=== PATIENT | female | born 1970 | race Caucasian/White ===

== ENCOUNTER 2022-04-16 00:14 | Day surgery (SDC) | payer OTHER, SELFPAY ==
[2022-04-01 13:10] VITALS: BMI 21.2
[2022-04-16 09:26] VITALS: BP 113/88; PULSE 93; RESP 18; TEMP 36.8; O2SAT 100
--- NOTE | 2022-04-16 09:30 | WPDANESEPPF ---
Anes - Initial Pre Proc Eval Procedure: Operation Date: 04/16/22 10:30 Proposed Procedures p Colonoscopy - Myron Hart MD Date/Time: 04/16/22 09:30 Surgeon: Myron Hart MD Pre Op Diagnosis: blood in stool Patient Data Age: 51 Gender: F Height: 1.73 m Weight: 62.8 kg Last Vital Signs Temp 98.2 F 04/16/22 09:26 Pulse 93 04/16/22 09:26 Resp 18 04/16/22 09:26 BP 113/88 04/16/22 09:26 Pulse Ox 100 04/16/22 09:26 O2 Del Method Room Air 04/16/22 09:26 Allergies Allergy/AdvReac Type Severity Reaction Status Date / Time meperidine Allergy Unknown RASH/DIZZIN Verified 04/16/22 09:24 ESS Home Medications Medication Instructions Recorded Confirmed Type phentermine 37.5 mg tablet 37.5 mg PO DAILY 04/01/22 04/16/22 History Patient hx anesthesia problems: none Family hx anesthesia problems: none Results Review: All pre-operative results and documents have been reviewed as part of the pre-operative evaluation. [facility] Social History Social History Smoking status: Never smoker Alcohol intake: current Alcohol use details: socially Substance use type: does not use Living arrangements: with family Spiritual care concerns: No Anes - Eval Final PreProcedure Day of Procedure 04/16/22 09:30 Patient weight: normal Heart: regular rate and rhythm Lungs: clear to auscultation Airway: Mallampati scale class II Neurological: alert and oriented Last oral intake: >/= 8 hours ASA classification: I Emergent: no Anesthetic plan: proceed Anesthesia type and monitoring: general GIVS and standard monitoring Results Review: All pre-operative results and documents have been reviewed as part of the pre-operative evaluation. Informed Consent: The patient's anesthetic plan and its attendant risks and benefits were discussed with the patient/family/POA. Questions were solicited and answers provided to the satisfaction of the patient/family/POA.
[2022-04-16] MEDS: LACTATED RINGERS 1,000 ML 150 ML IV CONT (09:39)
--- NOTE | 2022-04-16 10:08 | P.HP_ITS ---
H&P: HPI History of Present Illness Date/Time: 04/16/22 10:08 Chief Complaint: Rectal bleeding. Narrative: This is a 51-year-old white female patient presents for screening colonoscopy. Patient reports occasional bright red blood per rectum typically with wiping. This occurred 3 times over the last several years. She had a colonoscopy in 2018 that revealed internal hemorrhoids. Additionally family history is significant that her mother had colon cancer brother had colon polyps. Patient presents today for screening colonoscopy. Review of Systems Review of Systems: Review of systems noncontributory. [facility] Social History Social History Smoking status: Never smoker Alcohol intake: current Alcohol use details: socially Substance use type: does not use Living arrangements: with family Spiritual care concerns: No Meds Home Medications and Allergies Home Medications Medication Instructions Recorded Confirmed Type phentermine 37.5 mg tablet 37.5 mg PO DAILY 04/01/22 04/16/22 History Allergies Allergy/AdvReac Type Severity Reaction Status Date / Time meperidine Allergy Unknown RASH/DIZZIN Verified 04/16/22 09:24 ESS Vital Signs Vital Signs - 24 hr 04/16/22 09:26 Temperature 98.2 F Pulse Rate 93 Respiratory Rate 18 Blood Pressure 113/88 Pulse Oximetry 100 Oxygen Delivery Room Air Exam Narrative: Physical exam reveals patient to be alert. Vital signs stable. HEENT exam is unremarkable. Patient is anicteric. Lungs are clear to auscultation and percussion. Heart is without murmur or extra sounds. Abdomen bowel sounds are present soft nontender with no organomegaly. Digital external rectal exam is normal. Assessment and Plan Assessment and plan (1) Rectal bleeding: Code(s): K62.5 - Hemorrhage of anus and rectum Status: Acute Assessment and Plan: Patient with intermittent bright red blood per rectum consistent with her known hemorrhoids. Plan is for high-fiber diet. If bleeding persists consider referral for hemorrhoid surgery. (2) Family history of colon cancer in mother: Code(s): Z80.0 - Family history of malignant neoplasm of digestive organs Status: Acute Assessment and Plan: Patient's mother had colon cancer. Brother had colon polyps. Plan is for surveillance colonoscopy at 5 year intervals. Further recommendations will be given after endoscopy.
[2022-04-16 10:37] VITALS: BP 94/57; PULSE 80; RESP 24; O2SAT 100
[2022-04-16 10:47] VITALS: BP 91/65; PULSE 84; RESP 20; O2SAT 100
[2022-04-16 10:57] VITALS: BP 99/68; PULSE 77; RESP 20; O2SAT 100
== END 2022-04-16 11:07 | disposition home or self-care (01) ==
PROVIDERS: PCP Internal Medicine; Visit Provider Internal Medicine Gastroenterology
PROC: 0DJD8ZZ Inspection of Lower Intestinal Tract, Via Natural or Artificial Opening Endoscopic (ICD-10-PCS; CPT 45378; principal; 2022-04-16 10:30)
DX: Z12.11 Encounter for screening for malignant neoplasm of colon (principal); K62.5 Hemorrhage of anus and rectum; Z80.0 Family history of malignant neoplasm of digestive organs; R19.5 Other fecal abnormalities
CPT/HCPCS: 45378; J2704; J7120

== ENCOUNTER 2023-08-29 15:07 | Emergency (ER) | payer OTHER, SELFPAY ==
[2023-08-29 15:46] VITALS: BP 123/79; PULSE 107; RESP 18; TEMP 36.6; O2SAT 98
--- NOTE | 2023-08-29 16:21 | ED.URI ---
HPI - URI/Sore Throat General Chief Complaint: Upper Respiratory Infection Stated Complaint: sorethroat,cough Time Seen by Provider: 08/29/23 15:55 Source: patient Mode of arrival: ambulatory Limitations: no limitations History of Present Illness HPI Narrative: Lori is a 52-year-old female patient presenting to the clinic today with complaints of sore throat or cough for the past 2-3 days. She reports no known fever or chills. Feels as though when she coughs she is having bronchospasms. No history of asthma or COPD. Had COVID before . MD elicited complaint: cough, sore throat and nasal congestion Related Data Allergies Allergy/AdvReac Type Severity Reaction Status Date / Time meperidine Allergy Unknown RASH/DIZZIN Verified 08/29/23 16:10 ESS Review of Systems Review of Systems: Pertinent positives per HPI. Patient denies any fever, chills, rash, headache, visual changes, dizziness, shortness of breath, chest pain, palpitations, nausea, vomiting, diarrhea, constipation, abdominal pain, or any urinary issues. PMFSH Past Medical History Medical History Anxiety Weight loss Surgical History Surgical History History of hysterectomy 2010 History of tonsillectomy History of wisdom tooth extraction Social History Social History Smoking status: Never smoker Alcohol intake: current Alcohol use details: socially Substance use: never Substance use type: does not use Lack of Transportation: No Lack of Food: Never True Current Housing: I Have Housing Concerned About Future Housing: No Difficulty Paying Gas/Electric Bills: No Difficulty Paying for Meds: No Currently Unemployed: No Difficulty w/ Childcare or Family Care: No Living arrangements: with family Occupation/Education: occupation Gender identity (if verbalized by the patient): Female Sexual Orientation (if Verbalized by the Patient): Straight or Heterosexual Spiritual care concerns: No Comments At the time of my signature, I reviewed and agree with the nursing past medical, surgical, social, and family history. There is no relevant family history pertinent to the patient complaint. Exam Narrative: General: Well-developed, well nourished, in no apparent distress Head: Normocephalic, atraumatic Eyes: Pupils equally round and reactive to light bilaterally, EOM intact, sclera and conjunctive clear, no discharge, lids normal Ears: TMs intact and congested, ear canals clear, no drainage, grossly hearing normal. Nose: Nares patent, and clear discharge, no inflammation, no sinus tenderness. Mouth: Oral pharynx without lesions or masses, good dentition, MMM. Postnasal drip Neck: Supple, trachea midline, no enlargement of anterior or posterior cervical nodes, no thyroid masses or goiter palpable. Cardio: Regular rate and rhythm, s1 and s2 normal, no murmur appreciated. Resp: Clear to auscultation bilaterally, no rhonchi, rales, wheezing or rubs Course Course Emergency Course: Portions of this record may have been created with voice recognition software. Level of Care: Express Care Visit Vital Signs Vital signs: Vital Signs Temperature 36.6 C 08/29/23 15:46 Pulse Rate 107 H 08/29/23 15:46 Respiratory Rate 18 08/29/23 15:46 Blood Pressure 123/79 08/29/23 15:46 Pulse Oximetry 98 08/29/23 15:46 Oxygen Delivery Room Air 08/29/23 15:46 Temperature 36.6 C 08/29/23 15:46 Pulse Rate 107 H 08/29/23 15:46 Respiratory Rate 18 08/29/23 15:46 Blood Pressure 123/79 08/29/23 15:46 Pulse Oximetry 98 08/29/23 15:46 Oxygen Delivery Room Air 08/29/23 15:46 Vital signs reviewed MDM - URI/Sore Throat MDM Narrative Medical decision making narrative: At the time of visit patient is rest
== END 2023-08-29 16:28 | disposition home or self-care (01) ==
PROVIDERS: Emergency Provider Nurse Practitioner Family; PCP Physician Assistant Medical
DX: J06.9 Acute upper respiratory infection, unspecified (principal); R09.82 Postnasal drip; R05.1 Acute cough
CPT/HCPCS: 87081; 87880; 99213; G0463

== ENCOUNTER 2023-10-19 12:16 | Emergency (ER) | payer OTHER, SELFPAY ==
[2023-10-19 13:18] VITALS: BP 125/89; PULSE 85; RESP 18; TEMP 36.7; O2SAT 99
--- NOTE | 2023-10-19 13:34 | ED.SKABFB ---
HPI - Skin/Abscess/Foreign Bdy General Chief complaint: Skin/Abscess/Foreign Body Stated complaint: shingles Time Seen by Provider: 10/19/23 13:34 Source: patient Mode of arrival: ambulatory Limitations: no limitations History of Present Illness HPI narrative: 53 yo F presents with c/o painful, itchy rash to R mid back under bra strap for approx. 4 days. Taking tylenol and ibuprofen to treat pain. Pt states she had pain first and thought is was a muscle so went and got massage. Next day noticed rash. Concerned for shingles. all systems reviewed and negative except as noted above. Related Data Allergies Allergy/AdvReac Type Severity Reaction Status Date / Time meperidine Allergy Unknown RASH/DIZZIN Verified 10/19/23 13:21 ESS Review of Systems Review of Systems: CONSTITUTIONAL: Denies fever, chills, or sweats. EYES: Denies visual changes, redness, or discharge. ENT: Denies rhinorrhea, congestion, sore throat, or otalgia. CARDIOVASCULAR: Denies chest pain, palpitations, or edema. RESPIRATORY: Denies cough or dyspnea. GASTROINTESTINAL: Denies abdominal pain, nausea, vomiting, or diarrhea. GENITOURINARY: Denies dysuria or hematuria. SKIN: Reports painful itchy rash to right mid back. MUSCULOSKELETAL: Denies back pain, joint pain, or myalgia. NEUROLOGIC: Denies headache, numbness, or weakness. PSYCHIATRIC: Denies anxiety or depression. All other systems reviewed are negative, except as documented in HPI. [facility] Past Medical History Medical History Anxiety Weight loss Surgical History Surgical History History of hysterectomy 2010 History of tonsillectomy History of wisdom tooth extraction Social History Social History Smoking status: Never smoker Alcohol intake: current Alcohol use details: socially Substance use: never Substance use type: does not use Lack of Transportation: No Lack of Food: Never True Current Housing: I Have Housing Concerned About Future Housing: No Difficulty Paying Gas/Electric Bills: No Difficulty Paying for Meds: No Currently Unemployed: No Difficulty w/ Childcare or Family Care: No Living arrangements: with family Occupation/Education: occupation Gender identity (if verbalized by the patient): Female Sexual Orientation (if Verbalized by the Patient): Straight or Heterosexual Spiritual care concerns: No Comments At time of signature, agree with nursing past medical, surgical, social and family history. There is no relevant family history pertinent to the presenting complaint. Exam Narrative: GENERAL: This is a well-nourished, well-developed patient, in no apparent distress. HEAD: normocephalic, atraumatic. EYES: PERRL. Sclera clear/white. Vision is grossly intact. EARS: External ears normal NOSE: External nose normal NECK: Neck supple, non-tender without lymphadenopathy, masses or thyromegaly. CARDIOVASCULAR: Regular rate and rhythm without murmurs, gallops, or rubs. RESPIRATORY: Clear to auscultation. Breath sounds equal bilaterally. No wheezes, rales, or rhonchi. SKIN: warm, Dry, intact, good texture and turgor. cluster of erythematous vesicles to R side of back under bra strap. tender on palpation. NEURO: awake, alert, and oriented to person, place and time. There were no obvious focal neurologic abnormalities. EXTREMITIES: No joint tenderness, effusion, or edema noted. Course Course Level of Care: Express Care Visit Vital Signs Vital signs: Vital Signs Temperature 36.7 C 10/19/23 13:18 Pulse Rate 85 10/19/23 13:18 Respiratory Rate 18 10/19/23 13:18 Blood Pressure 125/89 10/19/23 13:18 Pulse Oximetry 99 10/19/23 13:18 Oxygen Delivery Room Air 10/19/23 13:18 Temperature 36.7 C 10/19/23 13:18 Pulse Rate 85 10/19/23 1
== END 2023-10-19 13:53 | disposition home or self-care (01) ==
PROVIDERS: Emergency Provider Nurse Practitioner Family
DX: B02.9 Zoster without complications (principal)
CPT/HCPCS: 99213; G0463

== ENCOUNTER 2024-05-13 12:54 | Emergency (ER) | payer OTHER, SELFPAY ==
[2024-05-13 13:00] VITALS: BP 109/77; PULSE 85; RESP 16; TEMP 36.6; O2SAT 99
--- NOTE | 2024-05-13 13:03 | ED.FEMALEGU ---
HPI - Female Genitourinary General Chief complaint: Urogenital-Female Stated complaint: UTI Source: patient and RN notes reviewed Mode of arrival: ambulatory Limitations: no limitations History of Present Illness HPI Narrative: 53 y/o female presented for c/o bladder pressure and urinary frequency for 3 days. Reports LLQ abdominal pain last night, which has resolved. The pain was severe, causing her to feel nauseated and sweaty. It resolved before she went to the ER. Denies hematuria, nausea, vomiting, flank pain, constipation, diarrhea, fevers or chills. LBM 2 days ago, which she states is normal for her Related Data Home Medications Medication Instructions Recorded Confirmed alprazolam 0.25 mg tablet 0.25 mg PO BID anxiety 05/13/24 05/13/24 Allergies Allergy/AdvReac Type Severity Reaction Status Date / Time meperidine Allergy Unknown RASH/DIZZIN Verified 05/13/24 13:07 ESS Review of Systems Review of Systems: CONSTITUTIONAL: Denies body aches, fever, chills, or sweats. CARDIOVASCULAR: Denies chest pain, palpitations, or edema. RESPIRATORY: Denies cough or dyspnea. GASTROINTESTINAL: Reports abdominal has resolved Denies nausea, vomiting, or diarrhea. GENITOURINARY: Reports dysuria, frequency, urgency, denies hematuria, flank pain SKIN: Denies rash, itching, or wounds. MUSCULOSKELETAL: Denies back pain or myalgia. [facility] Past Medical History Medical History Anxiety Weight loss Surgical History Surgical History History of hysterectomy 2010 History of tonsillectomy History of wisdom tooth extraction Social History Social History Smoking status: Never smoker Alcohol intake: current Alcohol use details: socially Substance use: never Substance use type: does not use Lack of Transportation: No Lack of Food: Never True Current Housing: I Have Housing Concerned About Future Housing: No Difficulty Paying Gas/Electric Bills: No Difficulty Paying for Meds: No Currently Unemployed: No Difficulty w/ Childcare or Family Care: No Living arrangements: with family Occupation/Education: occupation Gender identity (if verbalized by the patient): Female Sexual Orientation (if Verbalized by the Patient): Straight or Heterosexual Spiritual care concerns: No Comments At time of signature, I have reviewed and agree with nursing past medical, surgical, social and family history unless otherwise noted. Please see nursing chart for further information. There is no relevant family history pertinent to the presenting complaint Exam Narrative: GENERAL: Well-appearing ENT: Mucous membranes pink and moist. CHEST: No respiratory distress. Clear to auscultation. HEART: Regular rate and rhythm. ABDOMEN: Soft, nondistended, normal active bowel sounds. Mildly tender to the left lower quadrant with palpation. No CVA tenderness SKIN: Warm, dry, no rash. NEURO: No focal deficits. Alert and oriented x3. Gait steady. PSYCH: Normal affect. Course Course Emergency Course: Patient is aware of diagnosis, understands and agrees to treatment plan. Anticipatory guidance given. Patient agrees to follow-up as directed and is aware of reasons to seek care at the emergency department. Portions of this record may have been created with voice recognition software Level of Care: Express Care Visit Vital Signs Vital signs: Reviewed MDM - Female Genitourinary MDM Narrative Medical decision making narrative: Discussed physical exam findings and urine dip result. Discussed at length possible etiologies of the LLQ pain, she will go to the ER should it return. Declines to go at this time as it has resolved. Advised supportive measures and signs/symptoms to go to the ER. Pt is appropriate for outpt treatment and f/u. Diffe
[2024-05-13 13:07] VITALS: BP 109/77; PULSE 85; RESP 16; TEMP 36.6; O2SAT 99
[2024-05-13 13:14] LABS: EDUAAPPEAR Clear; EDUABILI Negative; EDUABLOOD Trace; EDUACOLOR1 Yellow; EDUAGLUCOSE Negative; EDUAKETONE Negative; EDUALEUKO Negative; EDUANITRATE Negative; EDUAPH 5.5; EDUAPROTEIN Negative; EDUASPGRAVITY 1.025; EDUAUROBILI 0.2
== END 2024-05-13 13:27 | disposition home or self-care (01) ==
PROVIDERS: Emergency Provider Nurse Practitioner Family; PCP Physician Assistant Medical
DX: R30.0 Dysuria (principal); F41.9 Anxiety disorder, unspecified
CPT/HCPCS: 81003; 87086; 99213; G0463

== ENCOUNTER 2024-11-06 10:24 | Emergency (ER) | payer OTHER, SELFPAY ==
[2024-11-06 10:41] VITALS: BP 119/73; PULSE 80; RESP 18; TEMP 36.4; O2SAT 99
--- NOTE | 2024-11-06 10:59 | ED.URI ---
HPI - URI/Sore Throat General Chief Complaint: Upper Respiratory Infection Stated Complaint: cough/breathing issues Time Seen by Provider: 11/06/24 11:00 Source: patient Mode of arrival: ambulatory Limitations: no limitations History of Present Illness HPI Narrative: 54-year-old female presented for complaint cough for 2 weeks, mild runny nose and intermittent fever. She says the cough is nonproductive but is described as ?violent and has led to vomiting. Also reports bilateral rib pain with cough and deep breath. She denies associated shortness of breath, wheezing, nausea vomiting, diarrhea or lethargy. Taking Tylenol and ibuprofen for symptoms. Related Data Home Medications ?Medication ?Instructions ?Recorded ?Confirmed ?Last Taken ?Type alprazolam 0.25 mg tablet 0.25 mg PO BID anxiety 05/13/24 09/30/24 Unknown History Allergies Allergy/AdvReac Type Severity Reaction Status Date / Time meperidine Allergy Unknown RASH/DIZZIN Verified 11/06/24 10:47 ESS Review of Systems Review of Systems: Per HPI All systems reviewed & are unremarkable except as noted in HPI and below PMFSH Past Medical History Medical History Anxiety Weight loss Surgical History Surgical History History of wisdom tooth extraction History of tonsillectomy History of hysterectomy 2009 Social History Social History Social History: 09/23/24 very confident with medical forms Smoking status: Never smoker Alcohol intake: current Alcohol use details: socially Substance use: never Substance use type: does not use Do You Feel Safe in your Home?: Yes Lack of Transportation: No Lack of Food: Never True Current Housing: I Have Housing Concerned About Future Housing: No Difficulty Paying Gas/Electric Bills: No Difficulty Paying for Meds: No Currently Unemployed: No Education: Master's Degree or Higher Difficulty w/ Childcare or Family Care: No Living arrangements: with family Occupation/Education: occupation Gender identity (if verbalized by the patient): Female Sexual Orientation (if Verbalized by the Patient): Straight or Heterosexual Spiritual care concerns: No Comments At time of signature, I have reviewed and agree with nursing past medical, surgical, social and family history unless otherwise noted. Please see nursing chart for further information. There is no relevant family history pertinent to the presenting complaint Exam Narrative: GENERAL: Mildly ill appearing, in no acute distress. EYES: EOMI. No redness or drainage. Conjunctivae normal. ENT: Mucous membranes pink and moist. No rhinorrhea. TMs normal bilaterally. Throat normal. Uvula midline. CHEST: No respiratory distress. Lungs clear to all young. Frequent nonproductive cough. HEART: Regular rate and rhythm. No murmur appreciated. SKIN: Warm, dry, no rash. Capillary refill normal. Normal skin turgor. NEURO: Alert and oriented x3. Gait steady. PSYCH: Normal affect. Course Course Emergency Course: Patient is aware of diagnosis, understands and agrees to treatment plan. Anticipatory guidance given. Patient agrees to follow-up as directed and is aware of reasons to seek care at the emergency department. Portions of this record may have been created with voice recognition software Level of Care: Express Care Visit Vital Signs Vital signs: Vital Signs Temperature 97.6 F 11/06/24 10:41 Pulse Rate 80 11/06/24 10:41 Respiratory Rate 18 11/06/24 10:41 Blood Pressure 119/73 11/06/24 10:41 Pulse Oximetry 99 11/06/24 10:41 Oxygen Delivery Room Air 11/06/24 10:41 Temperature 97.6 F 11/06/24 10:41 Pulse Rate 80 11/06/24 10:41 Respiratory Rate 18 11/06/24 10:41 Blood Pressure 119/73 11/06/24 10:41 Pulse Oximetry 99 11/06/24 10:41 Oxygen Delivery Room Air 11/06/24 10:41 MDM - URI/Sore Throat MDM Narrative Medical decision making narrative: Discussed physical exam findings. Advised supportive measures and signs/symptoms to go to the ER. Pt is appropriate for outpt treatment and f/u. Differential Diagnosis Differential diagnosis: Likely upper respiratory infection, viral infection, bronchitis, influenza and pharyngitis Discharge Plan Discharge Clinical Impression: Bronchitis Patient Disposition: Home, Self-Care Condition: Stable Instructions: Antibiotic Form, Acute Bronchitis (ED) Additional Instructions: Acute bronchitis can be contagious because it is usually caused by infection with a virus or bacteria. It is usually for a few days but you can be contagious for up to one week. Avoid crowds until you do not have a fever and symptoms are improved Take medication as directed Flonase spray and Zyrtec (or Claritin/Radha) the prescribed Cough syrup may cause drowsiness; avoid driving or take it at night time. The narcotic can be habit forming; take only as directed. Do not take with alprazolam. Tylenol 1000mg every 8 hours as needed for pain/fever rest, fluids, and increase humidity of the air at home. Follow up with your primary care provider as needed in 1 week Go to the ER for worsening symptoms or concerns Patient Language: French Prescriptions: New benzonatate 200 mg capsule 200 mg PO TID PRN (Reason: cough) Qty: 20 0RF codeine-guaifenesin [Guaifenesin AC] 10-100 mg/5 mL liquid 10 ml PO Q8H PRN (Reason: cough) Qty: 120 0RF prednisone 20 mg tablet 40 mg PO DAILY 5 Days Qty: 10 0RF azithromycin [Zithromax Z-Baldev] 250 mg tablet See Rx Instructions .ROUTE .COMPLEX Qty: 6 0RF Rx Instructions: For 250 mg dose pack: take 500 mg today (day 1), then 250 mg for 4 days (days 2-5) No Action alprazolam 0.25 mg tablet 0.25 mg PO BID dextroamphetamine-amphetamine [Adderall] 20 mg tablet 20 mg PO DAILY Qty: 30 0RF Follow-up/Referrals: Magdalena Yañez PA-C [Primary Care Provider] -
== END 2024-11-06 11:19 | disposition home or self-care (01) ==
PROVIDERS: Emergency Provider Nurse Practitioner Family; PCP Physician Assistant Medical
DX: J40 Bronchitis, not specified as acute or chronic (principal); F41.9 Anxiety disorder, unspecified
CPT/HCPCS: 99213; G0463

== ENCOUNTER 2025-05-01 14:30 | Emergency (ER) | payer OTHER, SELFPAY ==
--- OUTSIDE RECORDS SUMMARY | 2025-05-01 14:34 | XMS_ITS | Encounter Summary ---
Author Organization [facility] Address [address] [place] [id number] Care Team Providers Care Sap Data Architect Name Role Phone Magdalena Yañez PA-C Primary Care Provider [phone] Encounter Details Date Type Department Care Team (Late st Contact Info) Description 12/13/2024 [facility] [address] [address] Diogo Antonio MA Social History Tobacco Use Types Packs/Day Years Used Date Smoking Tobacco: Never Smokeless Tobacco: Never Alcohol Use Standard Drinks/Week Comments Yes 0 (1 standard drink = 0.6 oz pur e alcohol) 2/month AUDIT-C Answer Date Recorded Frequency of Alcohol Consumption Never 07/15/2019 Average Number of Drinks Not on file 019 Frequency of Binge Drinking Not on file 03/2019 Comments No Sex and Gender Information Value Date Recorded Sex Assigned at Female 11/12/2024 5:17 PM ADVOCACY DIRECTOR Legal Sex Female 7:17 PM CDT Gender Identity Not on file Sexual Orientation Not on file documented as of this encounter Plan of Treatment Not on file documented as of this encounter Procedures Procedure Name Priority Date/Time Associated Diagnosis Comments COMPREHENSIVE METABOLIC PANEL Routine 08/30/2024 LIPID PANEL Routine 08/30/2024 CBC, MANUAL DIFF Routine 08/30/2024 THYROID STIM HORMONE TSH Routine 08/30/2024 documented in this encounter Results * COMPREHENSIVE METABOLIC PANEL (08/30/2024) SODIUM S/P/B 142 GLUCOSE 88 mg/dL AST 15 BUN 19 CREATININE S/P/B 0.57 0.5 - 1.0 CALCIUM S/P/B 9.4 POTASSIUM S/P/B 3.9 CHLORIDE S/P/B 103 ALT 14 GFR ESTIMATE 109 us Default History Genericprovider LABORATORY Final Result * LIPID PANEL (08/30/2024) CHOLESTEROL 242 TRIGLYCERIDES 57 HDL 90 LDL (CALCULATED) 138 us Default History Genericprovider LABORATORY Final Result * CBC, MANUAL DIFF (08/30/2024) Pathologist [facility] WBC 3.4 HGB 13.1 HCT 39.0 PLT 275 us Default History Genericprovider LABORATORY Final Result * THYROID STIM HORMONE TSH (08/30/2024) TSH 1.83 us Default History Genericprovider LABORATORY Final Result documented in this encounter Visit Diagnoses Not on filedocumented in this encounter Care Teams Sap Data Architect Relationship Specialty Start Date End Date Magdalena Yañez PA-C [address] [place] [address] [address] [place] [address] PCP - General PHYSICIAN [employer] REPA[employer]ER 11/12/24 documented as of this encounter
--- OUTSIDE RECORDS SUMMARY | 2025-05-01 14:34 | XMS_ITS | Encounter Summary ---
Author Organization [facility] Address 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 Gender Identity Not on file Sexual Orientation Not on file documented as of this encounter Plan of Treatment Not on file documented as of this encounter Procedures Procedure Name Priority Date/Time Associated Diagnosis Comments PT AND APTT Routine 12/12/2004 7:25 AM CDT CBC WITH DIFFERENTIAL Routine 12/12/2004 7:25 AM CDT CBC WITH DIFFERENTIAL Routine 12/12/2004 7:25 AM CDT documented in this encounter Results * CBC WITH DIFFERENTIAL (12/12/2004 7:25 AM CDT) NEUTROPHILS 57 45 - 70 % INTERFAC E SYSTEM LYMPHOCYTES 32 16 - 45 % INTERFAC E SYSTEM MONOCYTES 8 3 - 13 % INTERFACE SYSTEM EOSINOPHILS 2 0 - 7 % INTERFAC E SYSTEM BASOPHILS 0 0 - 2 % INTERFACE SYSTEM NEUTROPHIL ABSOLUTE 2.64 1.90 - 7.00 K/uL INTERFACE SYSTEM LYMPHOCYTE ABSOLUTE 1.49 0.70 - 4.50 K/uL INTERFACE SYSTEM MONOCYTE ABSOLUTE 0.37 0.10 - 1.30 K/uL INTERFACE SYSTEM EOSINOPHIL ABSOLUTE 0.11 0.00 - 0.70 K/uL INTERFACE SYSTEM BASOPHILS ABSOLUTE 0.02 0.00 - 0.20 K/uL INTERFACE SYSTEM 12/12/2004 7:25 AM CDT Zulma James MD HEMATOLOGY ORDERABLES Final R esult INTERFACE SYSTEM Refer to clinic/hospital department * (ABNORMAL) CBC WITH DIFFERENTIAL (12/12/2004 7:25 AM CDT) WBC 4.6 4.0 - 9.8 K/uL INTERFACE SYSTEM RBC 3.86(L) 3.90 - 4.90 M/uL INTERFACE SYSTEM HEMOGLOBIN 11.7(L) 11.8 - 14.8 g/dL INTERFACE SYSTEM HEMATOCRIT 35.2(L) 35.5 - 44.0 % INTERFACE SYSTEM MCV 91.2 82.0 - 99.0 fL INTERFACE SYSTEM MCH 30.3 27.2 - 32.6 pg INTERFACE SYSTEM MCHC 33.2 31.5 - 35.5 % INTERFACE SYSTEM RDW 13.2 11.5 - 14.5 % INTERFACE SYSTEM RDW-STDEV 43.9 37.1 - 48.7 fL INTERFACE SYSTEM PLATELETS 253 140 - 350 K/uL INTERFACE SYSTEM MPV 10.6 9.3 - 12.4 fL INTERFACE SYSTEM 12/12/2004 7:25 AM CDT Zulma James MD HEMATOLOGY ORDERABLES Final R esult INTERFACE SYSTEM Refer to clinic/hospital department * PT AND APTT (12/12/2004 7:25 AM CDT) PROTIME 14.0 12.9 - 15.7 Seconds INTERFACE SYSTEM INR 1.0 0.9 - 1.1 INTERFACE SYSTEM Comment: INR Therapeutic Range: Adult: 2.0 - 3.0 for pulmonary embolism or prophylaxis against venous thrombosis or systemic embolization. 2.0 - 3.0 for patients with tissue heart valves. 3.0 - 4.5 for patients with mechanical heart valves. Pediatric (12 years and under): 1.5 - 3.0 Although the target range in children is not well established, INR values of 1.5 - 3.0 are recommended for most patients. Higher values have been used in children with prosthetic cardiac valves and hereditary clotting disorders. (<3 days) therapeutic ranges have not been established. PTT 29.0 25.0 - 35.0 Seconds INTERFACE SYSTEM Comment: PTT Therapeutic Range: Heparin Level PTT (seconds) <0.10 units/mL <45 0.10 - 0.30 units/mL 45 - 65 0.30 - 0.70 units/mL* 65 - 106* 0.70 - 1.00 units/mL 106 - 137 *corresponds to therapeutic range for unfractionated heparin 12/12/2004 7:25 AM CDT Zulma James MD HEMATOLOGY ORDERABLES Final R esult INTERFACE SYSTEM Refer to clinic/hospital department documented in this encounter Visit Diagnoses Diagnosis Paroxysmal supraventricular tachycardia- Primary documented in this encounter Care Teams Bleacher [employer] Relationship Specialty Start Date End Date Rome Jackson MD NO ADDRESS ON FILE PCP - General 12/12/04 documented as of this encounter
--- OUTSIDE RECORDS SUMMARY | 2025-05-01 14:34 | XMS_ITS | Clinical Summary ---
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 Gender Identity Not on file Sexual Orientation Not on file Plan of Treatment Health Maintenance Due Date Last Done Comments DTAP/TDAP/TD VACCINES (1 - Tdap) 1990 HEPATITIS B VACCINES (1 of 3 - 19+ 3-dose series) 09/09 HPV/Cotest (21-29) 1992 CERVICAL CANCER SCREENING 2001 HPV/Cotest (30-65) 2001 PAP SMEAR 2001 BREAST CANCER SCREENING 2011 COLORECTAL SCREENING 2016 Colorectal Cancer Screening 2016 FIT-DNA Q 3 years 2016 FIT/FOBT Q 1 year 2016 Flex Sig/CT Colonography Q 5 years 2016 ZOSTER VACCINE (1 of 2) 2021 INFLUENZA VACCINE (#1) 2025 Care Teams Senior Civil Engineer Relationship Specialty Start Date End Date Rome Jackson MD NO ADDRESS ON FILE PCP - General 12/12/04
[2025-05-01 14:37] VITALS: BP 109/75; PULSE 85; RESP 18; TEMP 36.4; O2SAT 100
[2025-05-01 14:43] LABS: EDUAAPPEAR Clear; EDUABILI Negative (Negative); EDUABLOOD Negative (Negative); EDUACOLOR1 Yellow; EDUAGLUCOSE Negative (Negative); EDUAKETONE Negative (Negative); EDUALEUKO Negative (Negative); EDUANITRATE Negative (Negative); EDUAPH 5.0; EDUAPROTEIN Negative (Negative); EDUASPGRAVITY 1.025; EDUAUROBILI 0.2
--- NOTE | 2025-05-01 14:44 | ED_ITS ---
HPI - Female Genitourinary General Chief complaint: Urogenital-Female Stated complaint: Bladder Infection patient presents to the [facility] with complaints of urinary frequency for the last 3-4 days then today noticed left-sided lower abdominal pain. Patient also reports over the last several weeks has had abdominal bloating believed that this was related to an estrogen patch she started in March so about 1 week ago she did stop this medication. Patient does report history hysterectomy but still has ovaries. Patient also noted a history of kidney stones but this is not feeling like when she had her kidney stone. Denies fever, chills, body aches, lower back pain, vaginal symptoms, or blood in urine. Related Data Allergies Allergy/AdvReac Type Severity Reaction Status Date / Time meperidine Allergy Unknown RASH/DIZZIN Verified 05/01/25 14:32 ESS Review of Systems Constitutional: Constitutional: Reports as per HPI, Denies chills and Denies fatigue Eyes: Eyes: Reports no additional eye complaints Cardiovascular: Cardiovascular: Reports no additional cardiovascular complaints Respiratory: Respiratory: Reports no additional respiratory complaints Gastrointestinal: Gastrointestinal: Reports as per HPI, Reports bloating, Denies diarrhea, Denies nausea and Denies vomiting Genitourinary: Genitourinary: Reports as per HPI, Denies hematuria, Reports nocturia, Reports dysuria, Denies flank pain, Reports urinary incontinence and Denies vaginal discharge Musculoskeletal: Musculoskeletal: Reports as per HPI and Denies back pain Integumentary/Breasts: Skin/Breast: Reports as per HPI, Denies erythema and Denies rash Neurologic: Reports system reviewed and no additional complaints, except as documented Psychiatric: Psychiatric: Reports no additional psychiatric complaints Endocrine: Endocrine: Reports no additional endocrine complaints Hematologic/Lymphatic: Hematologic/Lymphatic: Reports no additional hematologic/lymphatic complaints Allergic/Immunologic: Allergic/Immunologic: Reports no additional allergic/immunologic complaints [facility]LY [facility] Past Medical History Medical History Anxiety Weight loss Surgical History Surgical History History of wisdom tooth extraction History of tonsillectomy History of hysterectomy 2009 Social History Social History Social History: 09/23/24 very confident with medical forms 01/13/25 patient declined SDOH Smoking status: Never smoker Alcohol intake: current Alcohol use details: socially Substance use: never Substance use type: does not use Do You Feel Safe in your Home?: Yes Lack of Transportation: No Lack of Food: Never True Current Housing: I Have Housing Concerned About Future Housing: No Difficulty Paying Gas/Electric Bills: No Difficulty Paying for Meds: No Currently Unemployed: No Education: Master's Degree or Higher Difficulty w/ Childcare or Family Care: No Living arrangements: with family Occupation/Education: occupation Gender identity (if verbalized by the patient): Female Sexual Orientation (if Verbalized by the Patient): Straight or Heterosexual Spiritual care concerns: No Course Course Level of Care: Express Care Visit Vital Signs Vital signs: Vital Signs Temperature 97.5 F L 05/01/25 14:37 Pulse Rate 85 05/01/25 14:37 Respiratory Rate 18 05/01/25 14:37 Blood Pressure 109/75 05/01/25 14:37 Pulse Oximetry 100 05/01/25 14:37 Oxygen Delivery Room Air 05/01/25 14:37 Temperature 97.5 F L 05/01/25 14:37 Pulse Rate 85 05/01/25 14:37 Respiratory Rate 18 05/01/25 14:37 Blood Pressure 109/75 05/01/25 14:37 Pulse Oximetry 100 05/01/25 14:37 Oxygen Delivery Room Air 05/01/25 14:37 MDM - Female Genitourinary MDM Narrative Medical decision making narrative: urine in clinic negative but given patient's sudden onset of symptoms will start antibiotics and sent for culture. With lower abdominal pain and bloating recommended follow-up with business relations manager for pelvic ultrasound and further evaluation The patient was evaluated by myself in the express care. History is obtained from patient who is an independent historian and physical exam was performed. Available medical records were reviewed at this time. Exam findings show no acute concerns or changes; patient is non-toxic appearing and is in no distress. Patient is appropriate for outpatient treatment and follow-up. I have evaluated and discussed social determinants of health with the patient that could potentially impact subsequent diagnosis and treatment plans. Differential diagnosis and treatment plan were discussed with the patient. Patient agrees with discussion and after shared medical decision making agrees with plan of care. All questions were answered to the patient's satisfaction. Differential Diagnosis Differential diagnosis: Likely urinary tract infection, bacterial vaginosis, cervicitis, ovarian cyst, vaginitis and cystitis Medical Records Attestation: I reviewed the patient's medical records. Lab Data Attestation: I reviewed the patient's lab results. Labs: Lab Results 05/01/25 Range/Units 14:41 POC Urine Color Yellow POC Urine Clarity Clear POC Urine pH 5.0 POC Ur Specif [place] 1.025 POC Urine Protein Negative (Negative) POC Ur Glucose (UA) Negative (Negative) POC Urine Ketones Negative (Negative) POC Urine Blood Negative (Negative) POC Urine Nitrite Negative (Negative) POC Urine Bilirubin Negative (Negative) POC Urine Urobilinogen 0.2 POC U Leukocyte Esteras Negative (Negative) Discharge Plan Discharge Clinical Impression: Dysuria Patient Disposition: Home Condition: Stable Instructions: Antibiotic Form, Urinary Tract Infection in Women (ED) Additional Instructions: We will send a urine culture off to the lab; if the culture identifies an organism that the prescribed antibiotic will not treat, you will receive a phone call from an urgent care staff member and an appropriate antibiotic will be prescribed. - given your specific symptoms with the bloating would recommend follow-up with gum puller to talk about possible need for pelvic ultrasound to visualize ovaries -Your symptoms should begin to improve within a day of starting antibiotics. But you should finish all the antibiotic pills you get. Otherwise your infection might come back. -Also recommend: drink more fluid. It might help flush out germs, and it does no harm -Tylenol/ibuprofen as needed for pain -Follow-up with your primary care provider for urine recheck OR if your symptoms persist, change or worsen significantly before you can contact your personal physician then please, without delay, go to the emergency department for further evaluation. Patient Language: Greenlandic Prescriptions: New nitrofurantoin monohyd/m-cryst [Macrobid] 100 mg capsule 100 mg PO Q12H 5 Days Qty: 10 0RF Rx Instructions: must administer with a meal/food Follow-up/Referrals: Magdalena Yañez PA-C [Primary Care Provider, [facility]] Time of Disposition: 14:57
== END 2025-05-01 14:59 | disposition home or self-care (01) ==
PROVIDERS: Emergency Provider Nurse Practitioner Family; PCP Physician Assistant Medical
DX: R30.0 Dysuria (principal); Z87.442 Personal history of urinary calculi
CPT/HCPCS: 81003; 87086; 99213; G0463

== ENCOUNTER 2025-07-02 10:26 | Emergency (ER) | payer OTHER, SELFPAY ==
[2025-07-02 10:40] VITALS: BP 133/79; PULSE 81; RESP 18; TEMP 36.9; O2SAT 99
--- NOTE | 2025-07-02 10:55 | ED.URI ---
HPI - URI/Sore Throat General Chief Complaint: Upper Respiratory Infection Stated Complaint: URI patient presents to the [facility] with complaints of chest congestion, productive cough, nasal congestion, sore throat, headaches, fatigue, and fevers that began about 6 days ago. Patient reports has been ill with similar symptoms that started prior to hers. Patient has been using [id number] medication including Advil cold and Sinus. Does report a history of pneumonia bronchitis. Denies nausea, vomiting, diarrhea, chills, shortness of breath, wheezing, dizziness, or sore throat. Related Data Allergies Allergy/AdvReac Type Severity Reaction Status Date / Time meperidine Allergy Unknown RASH/DIZZIN Verified 07/02/25 10:42 ESS Review of Systems Constitutional: Constitutional: Reports as per HPI, Denies chills, Reports fatigue, Reports fever(s) and Denies weakness Eyes: Eyes: Reports no additional eye complaints ENT: Reports as per HPI, Denies vertigo, Denies dizziness, Reports nasal congestion and Denies sore throat Cardiovascular: Cardiovascular: Reports no additional cardiovascular complaints Respiratory: Respiratory: Reports as per HPI, Reports chest congestion, Reports cough, Denies dyspnea and Denies wheezing Gastrointestinal: Gastrointestinal: Reports as per HPI, Denies diarrhea, Denies nausea and Denies vomiting Genitourinary: Genitourinary: Reports no additional female genitourinary complaints Musculoskeletal: Musculoskeletal: Reports as per HPI, Denies back pain and Denies myalgias Integumentary/Breasts: Skin/Breast: Reports as per HPI, Denies rash and Denies skin ulcer Neurologic: Reports as per HPI, Denies vertigo, Denies dizziness, Reports headache(s), Denies focal weakness and Denies weakness Psychiatric: Psychiatric: Reports no additional psychiatric complaints Endocrine: Endocrine: Reports no additional endocrine complaints Hematologic/Lymphatic: Hematologic/Lymphatic: Reports no additional hematologic/lymphatic complaints Allergic/Immunologic: Allergic/Immunologic: Reports no additional allergic/immunologic complaints [facility] Past Medical History Medical History ) Anxiety Weight loss Surgical History Surgical History ) History of wisdom tooth extraction History of tonsillectomy History of hysterectomy 2010 Social History Social History ) Social History: 09/23/24 very confident with medical forms 01/13/25 patient declined SDOH Smoking status: Never smoker Alcohol intake: current Alcohol use details: socially Substance use: never Substance use type: does not use Do You Feel Safe in your Home?: Yes Lack of Transportation: No Lack of Food: Never True Current Housing: I Have Housing Concerned About Future Housing: No Difficulty Paying Gas/Electric Bills: No Difficulty Paying for Meds: No Currently Unemployed: No Education: Master's Degree or Higher Difficulty w/ Childcare or Family Care: No Living arrangements: with family Occupation/Education: occupation Gender identity (if verbalized by the patient): Female Sexual Orientation (if Verbalized by the Patient): Straight or Heterosexual Spiritual care concerns: No Exam Const: General: healthy appearing and no acute distress Nutritional Appearance: well nourished Orientation/consciousness: patient oriented x3 Limitations: no limitations HENMT: Head: normal to inspection Ears: external ears normal and TM's normal bilaterally Face/Nose/Sinus: Normal external nose present and nares abnormal ( Mild erythema and edema noted bilaterally) Face and sinus: normal facial exam and sinuses nontender Mouth: Yes Normal oral and palatal mucosa present, Yes lip normal and Yes moist mucous membranes Throat: posterior oropharynx abnormal ( moderate erythema with no edema or exudate) Neck: Neck: normal visual inspection and no lymphadenopathy Resp: Effort & Inspection: normal respiratory effort Auscultation: no crackles, no rales, no rhonchi, no wheezes and diminished lung sounds diffuse Other: congested cough after nebulizer treatment improved lung sounds no rhonchi no wheezing noted. Cardio: Rate: regular rate Rhythm: regular rhythm Skin: General skin exam: normal color Rashes: no rashes Wounds: no wounds Neuro: General: patient oriented x3 Speech: normal speech Gait exam (Neuro): Normal gait present Psych: Mental Status: mental status grossly normal Affect: normal affect Attitude: cooperative Course Course Level of Care: Express Care Visit Vital Signs Vital signs: Vital Signs Temperature 98.4 F 07/02/25 10:40 Pulse Rate 81 07/02/25 10:40 Respiratory Rate 18 07/02/25 10:40 Blood Pressure 133/79 07/02/25 10:40 Pulse Oximetry 99 07/02/25 10:40 Oxygen Delivery Room Air 07/02/25 10:40 Temperature 98.4 F 07/02/25 10:40 Pulse Rate 81 07/02/25 10:40 Respiratory Rate 18 07/02/25 10:40 Blood Pressure 133/79 07/02/25 10:40 Pulse Oximetry 99 07/02/25 10:40 Oxygen Delivery Room Air 07/02/25 10:40 MDM - URI/Sore Throat MDM Narrative Medical decision making narrative: dramatically bronchitis in nature given patient's history of bronchitis and room while also cover with antibiotics The patient was evaluated by myself in the [facility] care. History is obtained from patient who is an independent historian and physical exam was performed. Available medical records were reviewed at this time. Exam findings show no acute concerns or changes; patient is non-toxic appearing and is in no distress. Patient is appropriate for outpatient treatment and follow-up. I have evaluated and discussed social determinants of health with the patient that could potentially impact subsequent diagnosis and treatment plans. Differential diagnosis and treatment plan were discussed with the patient. Patient agrees with discussion and after shared medical decision making agrees with plan of care. All questions were answered to the patient's satisfaction. Differential Diagnosis Differential diagnosis: Likely upper respiratory infection, croup, otitis media, sinusitis, bronchitis, influenza and pharyngitis Medical Records Attestation: I reviewed the patient's medical records. Discharge Plan Discharge Clinical Impression: Bronchitis Patient Disposition: Home Condition: Stable Instructions: Antibiotic Form, Sinusitis (ED), Acute Bronchitis (ED) Additional Instructions: You have been diagnosed with bronchitis.Taking medications to control your symptoms will help until your body gets rid of symptoms Bronchitis does occasionally a post viral cough that is dry and hacking in nature that can last 6-8 weeks. Medication you can take to make you feel better: prednisone as directed. this medication can cause jitteriness or palpitations. If this happens You may stop this medication. albuterol inhaler every 4 hours as needed for cough, shortness of breath, or wheezing. Tessalon Perles/benzonatate for cough. These can be taken 3 times a day as needed. May also use [id number] medications like Mucinex, Sudafed, Flonase, Tylenol, and ibuprofen. If your symptoms worsen or last longer than 7-10 days follow-up with primary care provider or emergency room as needed. Patient Language: Japanese Prescriptions: New azithromycin 250 mg tablet See Rx Instructions .ROUTE .COMPLEX Qty: 6 0RF Rx Instructions: For 250 mg dose pack: take 500 mg today (day 1), then 250 mg for 4 days (days 2-5) benzonatate 200 mg capsule 200 mg PO TID PRN (Reason: cough) Qty: 30 0RF methylprednisolone [Medrol (Baldev)] 4 mg tablets,dose pack See Rx Instructions .ROUTE .COMPLEX Qty: 21 0RF Rx Instructions: for 6 days albuterol sulfate [Ventolin HFA] 90 mcg/actuation HFA aerosol inhaler 2 puff inhalation QID PRN (Reason: shortness of breath or wheezing) Qty: 8.5 0RF Follow-up/Referrals: Magdalena Yañez PA-C [Primary Care Provider, [facility]] Time of Disposition: 11:06
[2025-07-02] MEDS: IPRATROPIUM 0.5 MG/ALBUTEROL SULFATE 2.5 MG (BASE) AMPUL.NEB 3 ML INHALATION (10:59)
== END 2025-07-02 11:16 | disposition home or self-care (01) ==
PROVIDERS: Emergency Provider Nurse Practitioner Family; PCP Physician Assistant Medical
DX: J40 Bronchitis, not specified as acute or chronic (principal)
CPT/HCPCS: 94640; 99213; G0463

== ENCOUNTER 2025-08-24 15:50 | Emergency (ER) | payer OTHER, SELFPAY ==
[2025-08-24 16:01] VITALS: BP 120/81; PULSE 67; RESP 18; TEMP 36.9; O2SAT 98
--- NOTE | 2025-08-24 16:39 | ED_ITS ---
HPI - Ear Problem General Chief complaint: Ear Stated complaint: R Ear Time Seen by Provider: 08/24/25 16:05 Source: patient and RN notes reviewed Mode of arrival: ambulatory Limitations: no limitations History of Present Illness HPI Narrative: 54-year-old female presents Express Care complaining of right ear fullness for 5 days. Patient says she is having a hard time hearing upper right ear due to it. Patient is recently being sick. Patient denies any ear pain, tinnitus, dizziness, lightheadedness, nausea vomiting, any upper respiratory symptoms, cough, congestion, any other symptoms. Patient said she use the mechanical device to check her ears on home said she did not see any wax in her ears. Patient has been trying to chew gum to help with symptoms. Patient denies any recent travel or flying or high altitude recently. Related Data Allergies Allergy/AdvReac Type Severity Reaction Status Date / Time meperidine Allergy Unknown RASH/DIZZIN Verified 08/24/25 15:51 ESS Review of Systems Review of Systems: CONSTITUTIONAL: Denies fever, chills, or sweats. EYES: Denies visual changes, redness, or discharge. ENT: Denies rhinorrhea, congestion, sore throat, tinnitus, or otalgia. Positive for ear fullness and hearing loss. CARDIOVASCULAR: Denies chest pain, palpitations, dizziness, lightheadedness, or edema. RESPIRATORY: Denies cough or dyspnea. GASTROINTESTINAL: Denies abdominal pain, nausea, vomiting, or diarrhea. GENITOURINARY: Denies dysuria or hematuria. SKIN: Denies rash or itching. MUSCULOSKELETAL: Denies back pain, joint pain, or myalgia. NEUROLOGIC: Denies headache, numbness, or weakness. PSYCHIATRIC: Denies anxiety or depression. All other systems reviewed are negative, except as documented in HPI. [facility] Past Medical History Medical History Anxiety Weight loss Surgical History Surgical History History of wisdom tooth extraction History of tonsillectomy History of hysterectomy 2009 Social History Social History Social History: 09/23/24 very confident with medical forms 01/13/25 patient declined SDOH Smoking status: Never smoker Alcohol intake: current Alcohol use details: socially Substance use: never Substance use type: does not use Lack of Transportation: No Lack of Food: Never True Current Housing: I Have Housing Concerned About Future Housing: No Difficulty Paying Gas/Electric Bills: No Difficulty Paying for Meds: No Currently Unemployed: No Education: Master's Degree or Higher Difficulty w/ Childcare or Family Care: No Living arrangements: with family Occupation/Education: occupation Gender identity (if verbalized by the patient): Female Sexual Orientation (if Verbalized by the Patient): Straight or Heterosexual Spiritual care concerns: No Comments At the time of my signature, I reviewed and agree with the nursing past medical, surgical, social, and family history. There is no relevant family history pertinent to the patient complaint. Exam Narrative: GENERAL: This is a well-nourished, well-developed adult, in no apparent distress. They are non ill-appearing, nontoxic appearing. HEAD: normocephalic, atraumatic. EYES: Sclera clear/white. Conjunctiva normal. Vision is grossly intact. Extraocular movements intact EARS: External ears normal, auditory canals clear and without drainage, TMs normal without perforation. Effusion present behind right TM. Patient reports diminished hearing to the right. NOSE: External nose normal with no obvious nasal discharge, nasal turbinates without redness, no rhinorrhea. THROAT: Mucous membranes moist, posterior pharynx clear, without erythema or swelling. Uvula midline. NECK: Neck supple, non-tender without lymphadenopathy, masses or thyromegaly. CARDIOVASCULAR: Regular rate and rhythm RESPIRATORY: Respiratory rate normal, respiratory effort nonlabored, no respiratory distress SKIN: warm, Dry, intact with no suspicious lesions or rash, good texture and turgor. NEURO: awake, alert, and oriented to person, place and time. There were no obvious focal neurologic abnormalities. EXTREMITIES: No joint tenderness, effusion, or edema noted. BACK: Nontender without deformity. Course Course Level of Care: Express Care Visit Vital Signs Vital signs: Vital Signs Temperature 98.5 F 08/24/25 16:01 Pulse Rate 67 08/24/25 16:01 Respiratory Rate 18 08/24/25 16:01 Blood Pressure 120/81 08/24/25 16:01 Pulse Oximetry 98 08/24/25 16:01 Oxygen Delivery Room Air 08/24/25 16:01 Temperature 98.5 F 08/24/25 16:01 Pulse Rate 67 08/24/25 16:01 Respiratory Rate 18 08/24/25 16:01 Blood Pressure 120/81 08/24/25 16:01 Pulse Oximetry 98 08/24/25 16:01 Oxygen Delivery Room Air 08/24/25 16:01 [facility] MDM Narrative Medical decision making narrative: Appears patient has a effusion behind right ear, no impacted cerumen no evidence of infection. Informed patient we cannot test for hearing loss here at this facility. Discussed supportive care, recommended Flonase and azelastine spray along with Zyrtec to help with the effusion. Advised patient close follow-up PCP, gave her information by ENT, informed she may need a referral for PCP to be seen. Discussed physical exam findings. Advised supportive measures and signs/symptoms to go to the ER. Pt is appropriate for outpt treatment and f/u. Differential Diagnosis Differential Diagnosis: Otitis media, otitis effusion, otitis externa, impacted cerumen, hearing loss, vestibular disorder Critical Care Time Critical Care Time Critical Care Time: No Discharge Plan Discharge Clinical Impression: Fullness in right ear, Acute effusion of right ear Patient Disposition: Home Condition: Stable Instructions: Fluid In The Ear (Serous Otitis Media) (ED) Additional Instructions: Use Flonase 2 sprays each nostril daily, may increase to 2 sprays twice a day as needed. Use azelastine nasal spray 2 sprays each nostril daily Take a daily Zyrtec for your symptoms. Follow-up with your PCP or ENT in 3-5 days. Go to the ER if you develops fevers, severe pain, dizziness, vomiting or any serious concerns. Patient Language: Martiniquais Prescriptions: No Action azithromycin 250 mg tablet See Rx Instructions .ROUTE .COMPLEX Qty: 6 0RF Rx Instructions: For 250 mg dose pack: take 500 mg today (day 1), then 250 mg for 4 days (days 2-5) benzonatate 200 mg capsule 200 mg PO TID PRN (Reason: cough) Qty: 30 0RF methylprednisolone [Medrol (Baldev)] 4 mg tablets,dose pack See Rx Instructions .ROUTE .COMPLEX Qty: 21 0RF Rx Instructions: for 6 days albuterol sulfate [Ventolin HFA] 90 mcg/actuation HFA aerosol inhaler 2 puff inhalation QID PRN (Reason: shortness of breath or wheezing) Qty: 8.5 0RF Follow-up/Referrals: Deejay Keith MD [Physician, Ear, Nose, Throat] - 3 Days Magdalena Yañez PA-C [Primary Care Provider, [facility]] Time of Disposition: 16:27
--- OUTSIDE RECORDS SUMMARY | 2025-08-24 18:06 | XMS_ITS | Encounter Summary ---
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 Legal Sex Female 7:17 PM CDT Gender Identity Female 06/08/2025 3:13 PM CDT Sexual Orientation Straight 06/08/2025 3: 13 PM CDT documented as of this encounter Plan of [...] * CBC, MANUAL DIFF (08/30/2024) Pathologist [facility] WBC 3.4 HGB 13.1 HCT 39.0 PLT 275 us Default History Genericprovider LABORATORY Final Result * THYROID STIM HORMONE TSH (08/30/2024) TSH 1.83 us Default History Genericprovider LABORATORY Final Result documented in this encounter Visit Diagnoses Not on filedocumented in this encounter Care Teams Social Services Manager Relationship Specialty Start Date End Date Magdalena Yañez PA-C [address] [place], [place] [address] [place] [address] PCP - General PHYSICIAN MANAGER CONTRACTING 11/12/24 documented as of this encounter
--- OUTSIDE RECORDS SUMMARY | 2025-08-24 18:06 | XMS_ITS | Encounter Summary ---
Author Organization [facility] Address 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 Zulma James MD [address] [place], [place] [id number] PAROX ATRIAL TACHYCARDIA (Primary Dx) Social History Tobacco Use Types Packs/Day Years Used Date Smoking Tobacco: Never Assessed Comments Unknown Sex and Gender Information Value Date Recorded Sex Assigned at Not on file 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
--- OUTSIDE RECORDS SUMMARY | 2025-08-24 18:06 | XMS_ITS | Clinical Summary ---
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
--- OUTSIDE RECORDS SUMMARY | 2025-08-24 18:06 | XMS_ITS | Clinical Summary ---
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 If it bothers her enough we could certainly go in with a knee arthroscopy, remove the loose piece and try to find the donor site. However, it's not bothering her on a day-to-day basis, so she's going to hold off and we'll see her back as needed. PSVT (paroxysmal supraventricular tachycardia) 0 12/09/2024 Encounters Date Type Department Care Team Description 07/27/2025 4:11 PM FOLDING MACHINE FEEDER - 07/27/2025 11:59 PM FOLDING MACHINE FEEDER Hospital Encounter [facility] [address] [place] [address] Elmer Coley MD Discharge Disposition: Home or Self Care (Routine Discharge) 07/27/2025 Travel 07/11/2025 3:40 PM FOLDING MACHINE FEEDER Office Visit [facility] [address] [address] Fransico Lopez DO Knee Pain (Left Knee Pain) 07/11/2025 Travel 07/01/2025 1:12 PM CDT - 07/01/2025 11:59 PM CDT [place] [address] [place] [address] Austin Adamson PA-C Discharge Disposition: Home or Self Care (Routine Discharge) 07/01/2025 Travel 06/26/2025 7:29 AM CDT - 06/26/2025 11:59 PM CDT Hospital Encounter [facility] [address] [place] [address] Austin Adamson PA-C Discharge Disposition: Home or Self Care (Routine Discharge) 06/20/2025 3:15 PM CDT - 06/20/2025 11:59 PM CDT Hospital Encounter [facility] [id number] [place] [address] Austin Adamson PA-C Discharge Disposition: Home or Self Care (Routine Discharge) 06/20/2025 Orders Only [facility] [address] [place] [address] Austin Adamson PA-C 06/20/2025 Travel 06/08/2025 3:20 PM CDT [facility] [address] [place] [address] Wengert, Ho Romero, 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 Knee Pain (Left Knee Pain) 06/08/2025 Travel from Last 3 Months Immunizations Immunization Administration Dates Next Due Fluarix (IIV4) 07/16/2020 Family History Medical History Relation Comments Arthritis Brother Cancer Father colon Heart Attack Father Heart Attack Maternal Grandfather Heart Attack Maternal Grandmother Atrial fibrillation Mother Breast Cancer Mother Cancer Mother breast Heart Disease Mother Hypertension Mother Relation Status Comments Brother Alive Father Alive Maternal Grandfather Maternal Grandmother Mother Alive Paternal Grandfather Paternal Grandmother Social History Tobacco Use Types Packs/Day Years Used Date Smoking Tobacco: Never Smokeless Tobacco: Never Tobacco Cessation:Counseling Given: No Alcohol Use Standard Drinks/Week Comments Yes 1 (1 standard drink = 0.6 oz pur e alcohol) 2/month AUDIT-C Answer Date Recorded Frequency of Alcohol Consumption Never 07/15/2019 Average Number of Drinks Not on file 019 Frequency of Binge Drinking Not on file 03/2019 PHQ-2 Answer Date Recorded Patient Health Questionnaire-2 Score 0 06/08/2025 Comments No Sex and Gender Information Value Date Recorded Sex Assigned at Female 11/12/2024 5:17 PM FOLDING MACHINE FEEDER Legal Sex Female 7:17 PM CDT Gender Identity Female 06/08/2025 3:13 PM CDT Sexual Orientation Straight 06/08/2025 3: 13 PM CDT Last Filed Vital Signs Vital Sign Reading Time Taken Comments Blood Pressure 134/75 07/11/2025 3:43 PM FOLDING MACHINE FEEDER Pulse 68 07/11/2025 3:43 PM FOLDING MACHINE FEEDER Temperature 37.2 C (98.9 F) 07/11/2025 3:43 PM FOLDING MACHINE FEEDER Respiratory Rate 18 11/12/2024 8:18 PM FOLDING MACHINE FEEDER Oxygen Saturation 99% 07/11/2025 3:43 PM FOLDING MACHINE FEEDER Inhaled Oxygen Concentration - - Weight 70.6 kg (155 lb 9.6 oz) 07/11/2025 3:43 P M FOLDING MACHINE FEEDER Height 172.7 cm (5' 8) 07/11/2025 3:43 PM FOLDING MACHINE FEEDER Body Mass Index 23.66 07/11/2025 3:43 PM FOLDING MACHINE FEEDER Plan of Treatment Health Maintenance Due Date Last Done Comments Colorectal Cancer Screening Colonoscopy (10 Years) 1971 Annual Physical 1974 DTaP, Tdap and Td Vaccines (6 - Tdap) 1982 02/23/1982, 04/01/1977, 06/10/1973, Additional history exists Hepatitis C 1989 Hepatitis B Vaccines (1 of 3 - 19+ 3-dose series) 1990 Pneumococcal Vaccine: 50+ Years (1 of 2 - PCV) 1990 Zoster Vaccines (1 of 2) 2021 COVID-19 Vaccine (3 - season) 2025 10/27/2020, 09/28/2020 Mammogram Screening 02/07/2027 02/07/2025, 12/24/2023, 12/13/2022, Additional history exists PHQ-2 (Physician [place]) Completed 06/08/2025 Influenza Adult Completed 06/20/2025, 06/09, 06/23/2022, Additional history exists Hepatitis A Vaccines Aged Out No long er eligible based on patient's age to complete this topic Meningococcal B Vaccine Aged Out No l onger eligible based on patient's age to complete this topic Meningococcal Vaccine Aged Out No jeanie sarah eligible based on patient's age to complete this topic RSV Immunizations Under 20 Months Aged Out No longer eligible based on patient's age to complete this topic Procedures Procedure Name Priority Date/Time Associated Diagnosis Comments XR ABD KUB Routine 07/27/2025 4:22 PM FOLDING MACHINE FEEDER Bloating CT ABD+PEL W CON Routine 07/01/2025 2:15 PM CDT Abdominal distension Change in bowel habit Unspecified abdominal pain GI PANEL PCR - STOOL Routine 06/26/2025 12:40 PM CDT Unspecified abdominal pain Abdominal distension (gaseous) Change in bowel habit HC OVA & PARASITE W/STAIN-90 Routine 06/26/2025 12:40 PM CDT Unspecified abdominal pain Abdominal distension (gaseous) Change in bowel habit FECAL FAT, QUALITATIVE Routine 12:40 PM CDT Unspecified abdominal pain Abdominal distension (gaseous) Change in bowel habit HC COMPREHENSIVE METABOL PANEL Routine 06/20/2025 3:38 PM CDT Unspecified abdominal pain Abdominal distension (gaseous) Change in bowel habit HC LIPASE Routine 06/20/2025 3:38 PM CDT Unspecified abdominal pain Abdominal distension (gaseous) Change in bowel habit H. PYLORI UREA BREATH TEST Routine 06/20/2025 3:38 PM CDT Unspecified abdominal pain Abdominal distension (gaseous) Change in bowel habit HC AMYLASE Routine 06/20/2025 3:38 PM CDT Unspecified abdominal pain Abdominal distension (gaseous) Change in bowel habit CELIAC DISEASE COMP PANEL Routine 06/20/2025 3:38 PM CDT Unspecified abdominal pain Abdominal distension (gaseous) Change in bowel habit MG SCREENING W CHLOE KEN DIGI Routine 02/07/2025 3:37 PM CDT Screening mammogram for breast cancer from Last 3 Months or Most Recently Relevant to Health Maintenance Results * XR ABD KUB (07/27/2025 4:22 PM FOLDING MACHINE FEEDER) Anatomical Region Laterality Modality Abdomen Radiographic Meena ging 07/28/2025 3:50 AM FOLDING MACHINE FEEDER Impressions 07/28/2025 3:52 AM FOLDING MACHINE FEEDER IMPRESSION: 1. Nonobstructive bowel gas pattern. 2. Moderate volume stool density within the large bowel and rectum. Referred By: Interpreted By: Parviz Rocha MD, 07/28/2025 3:50 AM Narrative 07/28/2025 3:52 AM FOLDING MACHINE FEEDER [place] [id number] [place] [address] EXAMINATION: XR ABD KUB HISTORY: CONSTIPATION, ABDOMINAL PAIN, BLOATING COMPARISON: CT 07/01/2025. TECHNIQUE: AP views of the abdomen. FINDINGS: Nonobstructive bowel gas pattern. Moderate volume stool density present within the large bowel and rectum. No bowel pneumatosis identified. No abnormal intra- abdominal calcifications. Osseous structures are intact. Procedure Note Aj, Parviz S, MD - 07/28/2025 [facility] [address] [place] [id number] EXAMINATION: XR ABD KUB HISTORY: CONSTIPATION, ABDOMINAL PAIN, BLOATING COMPARISON: CT 07/01/2025. TECHNIQUE: AP views of the abdomen. FINDINGS: Nonobstructive bowel gas pattern. Moderate volume stool density presentwithin the large bowel and rectum. No bowel pneumatosis identified. Noabnormal intra- abdominal calcifications. Osseous structures are intact. IMPRESSION: 1. Nonobstructive bowel gas pattern. 2. Moderate volume stool density within the large bowel and rectum. Referred By: Interpreted By: Parviz Rocha MD, 07/28/2025 3:50 AM us Provider Non-Staff GENERAL IMAGING Final Result * CT ABD+PEL W CON (07/01/2025 2:15 PM CDT) Anatomical Region Laterality Modality Abdomen Computed Tomogra phy 07/04/2025 3:39 AM CDT Impressions 07/04/2025 3:39 AM CDT IMPRESSION: 1. No acute abnormality identified in the abdomen or pelvis. 2. Moderate to large colonic stool burden. No evidence of bowel obstruction. Referred By: AUSTIN ADAMSON Interpreted By: Candelario Mireles MD, 07/04/2025 3:39 AM Narrative 07/04/2025 3:39 AM CDT [facility] [address] [address] [place] [id number] EXAM: CT ABD+PEL W CON INDICATION: Abdominal distention COMPARISON: None TECHNIQUE: CT images of the abdomen/pelvis were obtained following the administration of IV contrast. Radiation dose reduction technique utilized. FINDINGS: Limited visualization of the lower thorax reveals no acute abnormality. Normal size liver, exhibit a Raúl configuration anatomic variant. 1.2 cm focus in the posterior right hemiliver examining discontinuous nodular peripheral enhancement compatible with a benign hemangioma. Scattered additional hypoattenuating cystic foci within the hepatic parenchyma likely represent benign simple cysts or benign hemangiomata. No follow-up is recommended for these findings. Gallbladder within normal limits. No retroperitoneal lymphadenopathy. No evidence of bowel obstruction or acute inflammation. Moderate to large colonic stool burden. Normal appearing appendix. Stomach and small bowel within normal limits. No free gas in the abdomen or pelvis. No mesenteric lymphadenopathy. Normal size spleen. Incidental note of benign calcified splenic granulomata. Pancreas and adrenal glands within normal limits. Kidneys enhance symmetrically. No hydronephrosis or hydroureter. Urinary bladder within normal limits for degree of distention. Hysterectomy. Incidental note of benign pelvic phleboliths. No pelvic lymphadenopathy or significant free fluid. Mild chronic multilevel degenerative changes of the spine. Visualized body wall exhibits no acute abnormality. Procedure Note Candelario Mireles MD - 07/04/2025 [facility] [address] [address] [place] [address] EXAM: CT ABD+PEL W CON INDICATION: Abdominal distention COMPARISON: None TECHNIQUE: CT images of the abdomen/pelvis were obtained following theadministration of IV contrast. Radiation dose reduction techniqueutilized. FINDINGS: Limited visualization of the lower thorax reveals no acute abnormality. Normal size liver, exhibit a Raúl configuration anatomic variant. 1.2 cmfocus in the posterior right hemiliver examining discontinuous nodularperipheral enhancement compatible with a benign hemangioma. Scatteredadditional hypoattenuating cystic foci within the hepatic parenchymalikely represent benign simple cysts or benign hemangiomata. No follow-upis recommended for these findings. Gallbladder within normal limits. No retroperitoneal lymphadenopathy. No evidence of bowel obstruction or acute inflammation. Moderate to largecolonic stool burden. Normal appearing appendix. Stomach and small bowelwithin normal limits. No free gas in the abdomen or pelvis. No mesentericlymphadenopathy. Normal size spleen. Incidental note of benign calcified splenicgranulomata. Pancreas and adrenal glands within normal limits. Kidneys enhance symmetrically. No hydronephrosis or hydroureter. Urinary bladder within normal limits for degree of distention.Hysterectomy. Incidental note of benign pelvic phleboliths. No pelviclymphadenopathy or significant free fluid. Mild chronic multilevel degenerative changes of the spine. Visualized body wall exhibits no acute abnormality. IMPRESSION: 1. No acute abnormality identified in the abdomen or pelvis. 2. Moderate to large colonic stool burden. No evidence of bowelobstruction. Referred By: AUSTIN ADAMSON Interpreted By: Candelario Mireles MD, 07/04/2025 3:39 AM us Austin BOYER-C CT Final Resu lt * GI PANEL PCR - STOOL (06/26/2025 12:40 PM CDT) CAMPYLOBACTER PCR (STOOL) NOT DETECTED NOT DETECTED 06/27/2025 12:12 PM CDT [facility] PLESIOMONAS SHIGELLOIDES PCR (STOOL) NOT DETECTED NOT DETECTED 06/27/2025 12:12 PM CDT [facility] SALMONELLA PCR (STOOL) NOT DETECTED NOT DETECTED 06/27/2025 12:12 PM CDT [facility] VIBRIO PCR (STOOL) NOT DETECTED NOT DETECTED 06/27/2025 12:12 PM CDT [facility] VIBRIO CHOLERAE PCR (STOOL) NOT DETECTED NOT DETECTED 06/27/2025 12:12 PM CDT [facility] YERSINIA ENTEROCOLITICA PCR (STOOL) NOT DETECTED NOT DETECTED 06/27/2025 12:12 PM CDT [facility] ENTEROAGGREGATIVE ECOLI PCR (STOOL) NOT DETECTED NOT DETECTED 06/27/2025 12:12 PM CDT [facility] ENTEROPATHOGENIC ECOLI PCR (STOOL) NOT DETECTED NOT DETECTED 06/27/2025 12:12 PM CDT [facility] ENTEROTOXIGENIC ECOLI PCR (STOOL) NOT DETECTED NOT DETECTED 06/27/2025 12:12 PM CDT [facility] SHIGA LIKE TOXIN ECOLI PCR (STOOL) NOT DETECTED NOT DETECTED 06/27/2025 12:12 PM CDT [facility] SHIG/ENTEROINVASIVE ECOLI PCR (STOOL) NOT DETECTED NOT DETECTED 06/27/2025 12:12 PM CDT [facility] CRYPTOSPORIDIUM PCR (STOOL) NOT DETECTED NOT DETECTED 06/27/2025 12:12 PM CDT [facility] CYCLOSPORA CAYETANENSIS PCR (STOOL) NOT DETECTED NOT DETECTED 06/27/2025 12:12 PM CDT [facility] ENTAMOEBA HISTOLYTICA PCR (STOOL) NOT DETECTED NOT DETECTED 06/27/2025 12:12 PM CDT [facility] GIARDIA LAMBLIA PCR (STOOL) NOT DETECTED NOT DETECTED 06/27/2025 12:12 PM CDT [facility] ADENOVIRUS F40/41 PCR (STOOL) NOT DETECTED NOT DETECTED 06/27/2025 12:12 PM CDT [facility] ASTROVIRUS PCR (STOOL) NOT DETECTED NOT DETECTED 06/27/2025 12:12 PM CDT [facility] NOROVIRUS GI/GII PCR (STOOL) NOT DETECTED NOT DETECTED 06/27/2025 12:12 PM CDT [facility] ROTAVIRUS A PCR (STOOL) NOT DETECTED NOT DETECTED 06/27/2025 12:12 PM CDT [facility] SAPOVIRUS PCR (STOOL) NOT DETECTED NOT DETECTED 06/27/2025 12:12 PM CDT [facility] STOOL SPECIMEN / Unknown 06/26/2025 12:40 PM CDT us Austin Adamson PA-C MICROBIOLOGY - GENERAL ORD ERABLES Final Result [facility] [address] [place] [address], * FECAL FAT, QUALITATIVE (06/26/2025 12:40 PM CDT) FECAL FAT QUALITATIVE (STOOL) NORMAL NORMAL 06/30/2025 7:17 PM CDT [employer] HELGA MURPHY Comment: Test Performed by [facility], [employer], [address], [place] Zana Underwood M.D., Ph.D., Director of Laboratories , [facility] [id number] 06/26/2025 12:4 0 PM CDT us Austin Adamson PA-C LABORATORY Final Resu lt [employer] [place] [id number] [place], [place] , [place] [phone] * O&P CONC&SMEAR TO REF LAB (06/26/2025 12:40 PM CDT) SPECIMEN SOURCE STOOL 7:30 AM CDT [facility] O & P EXAMINATION (STOOL) REPORT 07/02/2025 6:40 PM CDT [employer] HELGA MURPHY Comment: Ova and Parasites, Concentrate and Permanent Smear Examination for Ova and Parasites SOURCE : STOOL Result/Comment: NO OVA AND PARASITES SEEN. Reference Range: No Ova and Parasites seen Routine Ova and Parasite Exam may not detect some parasites that occasionally cause diarrheal illness. Cryptosporidium Antigen and/or Cyclospora and Isospora Exam may be ordered to detect these parasites. One negative sample does not necessarily rule out the presence of a parasitic infection. Assay performed by wet mount after concentration. Parasite Exam, Trichrome Stain SOURCE : STOOL Result/Comment: NO OVA AND PARASITES SEEN. Routine Ova and Parasite Exam may not detect some parasites that occasionally cause diarrheal illness. Cryptosporidium Antigen and/or Cyclospora and Isospora Exam may be ordered to detect these parasites. One negative sample does not necessarily rule out the presence of a parasitic infection. For additional information, please refer to https://education.[employer]/faq/EQP222 (This link is being provided for informational/ educational purposes only.) Test Performed by [employer] [employer], [address], [place] Zana Underwood M.D., Ph.D., Director of Laboratories , CLIA [id number] STOOL SPECIMEN / Unknown 06/26/2025 12:40 PM CDT us Austin Adamson PA-C MICROBIOLOGY - GENERAL ORD ERABLES Final Result [facility] , [place] [phone] [facility] [address] [place] [address], [place] [phone] * CELIAC DISEASE COMP PANEL (06/20/2025 3:38 PM CDT) INTERPRETATION REPORT 06/23/2025 9:02 PM CDT [employer] JACQUI KRUGER Comment: No serological evidence for celiac disease is present. tTG may normalize in individuals with celiac disease who maintain a gluten free diet. If high suspicion of celiac disease, consider HLA DQ2 and DQ8 testing to rule out celiac disease. TISSUE TRANSGLUTAMINASE IGA AB <1.0 <15.0 U/mL 06/23/2025 9:02 PM CDT [employer] JACQUI KRUGER Comment: Value Interpretation <15.0 Antibody not detected > or = 15.0 Antibody detected IGA 186 47 - 310 mg/dL 06/23/2025 9:02 PM CDT [employer] JACQUI KRUGER Comment: Test Performed by [employer], [address], [place] Zana Underwood M.D., Ph.D., Director of Laboratories , CLIA [id number] 06/20/2025 3:38 PM CDT Austin Adamson PA-C LABORATORY Final Resu lt Performing Organization Address [facility]/ZIP Co de Phone Number [employer] [place] [id number] [place], [place] , [place] [phone] * H. PYLORI UREA BREATH TEST (06/20/2025 3:38 PM CDT) H. PYLORI UREA BREATH TEST NOT DETECTED NOT DETECTED 06/23/2025 5:46 PM CDT [employer] PISANOAMINAH KRUGER Comment: Antimicrobials, proton pump inhibitors, and bismuth preparations are known to suppress H. pylori, and ingestion of these prior to H. pylori diagnostic testing may lead to false negative results. If clinically indicated, the test may be repeated on a new specimen obtained two weeks after discontinuing treatment. However, a positive result is still clinically valid. Test Performed by [employer] [facility], [employer] [facility], [address] [place] [address] Zana Underwood M.D., Ph.D., Director of Laboratories , CLIA [id number] 06/20/2025 3:38 PM CDT Austin Adamson PA-C LABORATORY Final Resu lt Performing Organization Address [facility]/ZIP Co de Phone Number [employer] [facility] [address] [place], [place] , [place] [phone] * (ABNORMAL) COMPREHENSIVE METABOLIC PANEL (06/20/2025 3:38 PM CDT) GLUCOSE 89 70 - 99 MG/DL 06/20/2025 4:21 PM CDT [facility] BUN 15 7 - 18 MG/DL 06/20/2025 4:21 PM CDT [facility] CREATININE S/P/B 0.47(L) 0.55 - 1.02 MG/DL 06/20/2025 4:21 PM [facility] SODIUM S/P/B 139 136 - 145 MMOL/L 06/20/2025 4:21 PM [facility] POTASSIUM S/P/B 3.6 3.5 - 5.1 MMOL/L 06/20/2025 4:21 PM [facility] CHLORIDE S/P/B 99(L) 100 - 108 MMOL/L 06/20/2025 4:21 PM [facility] CO2 31.1 21 - 32 MMOL/L 06/20/2025 4:21 PM [facility] CALCIUM S/P/B 8.9 8.5 - 10.1 MG/DL 06/20/2025 4:21 PM [facility] BILIRUBIN TOTAL S/P/B 0.5 0.2 - 1.2 MG/DL 06/20/2025 4:21 PM [facility] TOTAL PROTEIN S/P/B 7.4 6.4 - 8.2 G/DL 06/20/2025 4:21 PM [facility] ALBUMIN S/P/B 4.1 3.4 - 5.0 G/DL 06/20/2025 4:21 PM [facility] AST 35 15 - 37 U/L 06/20/2025 4:21 PM [facility] ALT 67(H) 14 - 55 U/L 06/20/2025 4:21 PM [facility] ALKALINE PHOSPHATASE S/P/B 58 50 - 136 U/L 06/20/2025 4:21 PM [facility] ANION GAP 8.9 5 - 15 MMOL/L 06/20/2025 4:21 PM [facility] BUN CREATININE RATIO 31.9(H) 6 - 26 06/20/2025 4:21 PM CDT [facility] A/G RATIO 1.2 1.0 - 2.0 RATIO 06/20/2025 4:21 PM CDT [facility] GFR ESTIMATE >90 >90 ML/MIN/1.7 3 M2 06/20/2025 4:21 PM CDT [facility] Comment: NOTE: eGFR is not calculated for patients <18 years of age. This is an estimated GFR calculation using the new CKD EPI creatinine equation without race and so does not require a correction factor for race. This estimated GFR should not be used for calculating drug doses. 06/20/2025 3:38 PM CDT Austin Adamson PA-C LABORATORY Final Resu lt Performing Organization Address City/[facility]/ZIP Co de Phone Number [facility] [address] [place] [address], [place] [phone] * AMYLASE (06/20/2025 3:38 PM CDT) AMYLASE S/P/B 57 25 - 115 UNITS/L 06/20/2025 4:21 PM CDT [facility] 06/20/2025 3:38 PM CDT Austin Adamson PA-C LABORATORY Final Resu lt [facility] [address] [place] [address], [place] [phone] * LIPASE (06/20/2025 3:38 PM CDT) LIPASE 29 16 - 77 UNITS/L 06/20/2025 4:21 PM CDT [facility] 06/20/2025 3:38 PM CDT Austin Adamson PA-C LABORATORY Final Resu lt [facility] [address] [place] [address], * MG SCREENING W CHLOE KEN DIGI (02/07/2025 3:37 PM CDT) Anatomical Region Laterality Modality Breast Bilateral Mammography 02/09/2025 3:35 PM CDT Impressions 02/09/2025 3:43 PM CDT ===== IMPRESSION: ===== 1. Stable mammographic appearance with no new findings to suggest malignancy in either breast. Assessment: ACR BI-RADS 2 - BENIGN FINDING(S) Recommendation: 1:Routine Screening Bilateral Comments: Ordered By: AUGUSTA POWER Interpreted By: Gisell Yuan, 02/09/2025 3:35 PM Narrative 02/09/2025 3:43 PM CDT [facility] [address] [place] [address] EXAMINATION: Digital bilateral screening mammogram with 3-D tomosynthesis EXAM DATE/TIME: 02/07/2025 2:39 PM REASON FOR EXAM: Routine screening Breast carcinoma in mother at age 65 COMPARISON: 02/15/2022.. 12/24/2023 Technique: Digital screening mammography of both breasts was performed in addition to 3-D Tomosynthesis technique. This study was read with the assistance of a computer-aided detection system. Tissue density: The breasts are heterogeneously dense, which may obscure small masses. Findings: There is no new focal asymmetry, dominant mass lesion, area of skin thickening, or cluster of suspicious appearing calcifications in either breast to suggest malignancy. Similar multiple benign calcifications. Augusta Power MD MAMMO Final Result from Last 3 Months or Most Recently Relevant to Health Maintenance Insurance [employer] Care Teams Adhesive Bonding Machine Operator Relationship Specialty Start Date End Date Austin Adamson PA-C [address] [place], [place] [address] [place] [address] PCP - General PHYSICIAN ACCOUNTANT ASSISTANT 11/12/24
--- OUTSIDE RECORDS SUMMARY | 2025-08-24 18:06 | XMS_ITS | Data Portability ---
Author Organization [id number] Address [address] [place] [address] Assessment No assessment recorded. Plan of Treatment Reminders Order Date Submit Date Provider Last Modified By Organization Details Last Modified Time Details Appointments ANNUAL- EST 15 2025 09:15A Sabrina POWER MD Not available Not available Not available Lab HPV DNA, high-risk - Reflex to genotypin g if HPV Detected [address] [facility] ([facility]), [facility] [address], [place], [address], 02/25/2025 20:55:50 pap, LB 2024 025 [facility] ([facility]), [address] [facility] [address], [place], [address], 02/25/2025 20:55:50 Referral None recorded. Procedures None recorded. Surgeries None recorded. Imaging US, transvagi nal 2024 025 [email or web address] Not available 05/04/2025 08:54:55 Medication Orders estradiol 0.05 mg/24 hr semiweekl y transderm al patch 2024 025 [id number], [address], [place], [id number], 02/23/2025 11:24:01 Patient TargetsNo targets recorded. Patient InstructionsNo instructions recorded. Reason for Referral None Reported. Results Created Date Observation Date Name Description Value Unit Range Abnormal Flag Note LastModifiedBy Organization Detail LastModifiedTime 02/24/2002/25/2025 PAP TEST THIN PREP Pap test thin prep Negati ve for Intrae pithel ial Lesion or Malign janell normal ACCES GARRISON #: [id number] Sourc e: Cervi roxanna/E ndoce rvica l LMP: 09/08 Date Taken : 02/23 Speci men Type: ThinP rep Vial Date Repor elli: 2024 Clini roxanna Data: Last Pap: wnl (02/17 ) Cytot ech: Osiris Stephenson r, CT( CP) Date Repor elli: 2024 Speci men Adequ acy: Satis facto ry for evalu ation Gener al Categ oriza tion: NEGAT LUKE FOR INTRA EPITH ELIAL LESIO N OR MALIG CATRACHO Inter preta tion/ Resul t: Atrop hy Comme nts/R ecomm endat ions: Infla mmati on This speci men has been arthur zed by the ThinP rep Imagi ng Syste m, an inter activ e compu ter syste m which edgar ts the lab in the scree xochitl of ThinP rep Pap Test slide s. Follo wing imagi ng, the slide was revie wed by a Cytot echno logis t and/o r Patho logis t. Cervi roxanna cytol ogy is a scree xochitl test prima rily for squam ous cance rs and precu rsors and has assoc iated false -nega tive and false -posi tive resul ts. New techn ologi es such as liqui d-bas ed prepa ratio ns may decre ase but will not elimi mt all false -nega tive resul ts. Regul ar sampl ing and follo w-up of unexp donte d clini roxanna signs and sympt oms are recom eloy d to minim ize false negat luke resul ts. D N A A S S A Y S R E P O R T TEST NAME RESUL TS ----- ---- ----- -- HPV High Risk Toshia n (TMA) ThinP rep Vial The human papil lomav irus (HPV) High Risk Scree n is an FDA-a pprov ed in-vi tro ampli fied nucle ic acid test for the quali tativ e detec tion of E6/E7 viral mRNA. Resul ts shoul d be corre lated with patie nt prese ntati on, histo ry, cervi roxanna cytol ogy and other clini roxanna and labor atory findi ngs. See https ://[employer]/s Cyphortes/ defau lt/fi les/-0 /AW- 00809 _002_ 01.pd f for nury er infor matkay n. Test perfo rmed by [facility] [employer] [facility], [address], [place] [address] , Lily Rowe ra, , Labor atory [facility]# [id number] HPV High Risk *HPV NOT DETEC ELLI (TYPE S 16, 18, 31, 33, 35, 39, 45, 51, 52, 56, 58, 59, 66, 68) *HPV: The human papil lomav irus (HPV) High Risk Toshia n is an FDA-a pprov ed in-vi tro ampli fied nucle ic acid test for the quali tativ e detec tion of E6/E7 viral mRNA. Resul ts irmaul d be corre lated with patie nt prese ntati on, histo ry, cervi roxanna cytol ogy and other clini roxanna and labor atory findi ngs. See https ://[employer]/s ites/ defau lt/fi -0 /AW- 63621 _002_ 01.pd f for furhi er infor matio n. Test perfo rmed by [facility] [employer] [facility], [address], [place] [address] , Lily Rowe ra, DO, Labor atory [facility], CLIA# [id number] End of Repor t Techn ical servi luke provi ded by [facility] [employer], d/b/a [facility], [address] [place] [address] Cosmo gross MD, [facility]. Case revie wed and diagn osis rende red at Assoc [facility] [employer], [employer] [facility], [address] [place] [address] Cosmo gross MD, [facility]. CONFI DENTI AL Not Available [facility] ([facility]) [address] [address], [place], [address], 02/25/2025 20:55:50 02/24/20 25 02/25/2025 HPV HIGH RISK SCREE N (TMA) HPV high risk NOT DETECT ED normal Not Available [facility]) [address] [address], [place], [address], 02/25/2025 20:55:50 02/10/20 25 02/07/2025 MAMMO , scree xochitl, bilat eral No observ ation record ed. [facility] [address] [place], [address], 02/24/2025 04:04:43 05/04/20 25 05/04/2025 ultra sound image s RAD bgelly [employer] [id number] 05/05/2025 11:04:18 05/05/20 25 05/04/2025 US, trans vagin al No observ ation record ed. [email or web address] Not Available 04/09 16:36:26 Result Notes None recorded. Problems Name Problem SNOMED Code Status Onset Date Resolution Date Notes Provider Name and Address Organization Details Recorded Time Menopausal syndrome 888533395 Active 025 PRIYA POWER MD [address] [facility] [address], [place], [address], [facility] 11:20:48 Problem Notes None recorded. Procedures Surgical History Date Name Laterality Status Provider Name and Address Organization Details Recorded Time 02/24/20 25 Date of Last Pap Smear completed PRIYA POWER MD [address] [facility] [address], [place], [address], [facility] 02/28/2025 10:08:11 02/08/20 25 Date of Last Mammogram completed PRIYA POWER MD [address] [facility] [address], [place], [address], [facility] 02/10/2025 18:23:07 09/08/19 22 Date of Last Colonoscopy completed [facility] 02/23/2025 11:08:29 07/22/20 13 Conization of cervix completed Not Available [facility], [facility] 01/06/2025 16:14:44 hysterectomy completed Not Available [facility] 01/06/2025 16:14:45 colonoscopy completed Not Available [facility], [facility] 01/06/2025 16:14:45 Hysteroscopy completed [facility] 02/23/2025 11:05:17 Imaging Results None recorded. Procedure Notes None recorded. Medical Equipment None Reported. Allergies Allergen ID Allergen Name Allergen Category Reaction Reaction Severity Criticality Documentation Date Start Date Code Code System Note Provider Name and Address Organization Details Recorded Time 347239 Demerol medicatio n Not available Not available Not available 01/06/2025 95808 1 RxNorm Hives , Itchi ng, Rash Not Available [facility] 13:59:19 Medications Name Sig Start Date Stop Date Status Note LastModified by Organization Details LastModified Time estradiol 0.05 mg/24 hr semiweekly transdermal patch Apply 1 patch twice a week by transderm al route. 2024 active Not Available Not Available Not Avai lable codeine 10 mg-guaifene sin 100 mg/5 mL oral liquid TAKE 10 ML BY MOUTH EVERY 8 HOURS NEEDED FOR COUGH 02/23 completed Not Available Not Available Not Available Vitals Date Recorded Body weight Body mass index (BMI) Body height Systolic And Diastolic Provider Name and Address Organization Details Last Updated DateTime 02/23/2025 06134.67 g 23.2 kg/m2 170.18 cm 102/72 mm[Hg] Gabriella Gerard [facility] 02/23/2025 11:10:11 Social History Question Answer Notes LastModified by [employer] Details LastModified Time Tobacco Smoking Status Never Smoker Not Available [facility] 01/06/2025 17:29:27 Do You Have An Advance Directive? No [email or web address] Information not available 02/23/2025 If You Are , What Was Your Level Of Alcohol Consumption Prior To ? None [email or web address] Information not available 02/23/2025 How Many Years Have You Consumed Alcohol? 20 [email or web address] Information not available 02/23/2025 What Is Your Level Of Caffeine Consumption? Occasional [email or web address] Information not available 02/23/2025 What Type Of Diet Are You Following? REGULAR [email or web address] Information not available 02/23/2025 What Is Your Relationship Status? [email or web address] Information not available 02/23/2025 Sex: Female Functional Status Question Answer Note LastModified by [employer] Details LastModified Time Do you use any illicit or recreational drugs? No Information not available 01/06/2025 What is your level of alcohol consumption? Occasional Qty: 1 per month ; Note: social Use status used: Current some day Amount used: 1 per month Information not available 01/06/2025 Are you currently employed? 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 Family History Relationship Description Onset Age of this Age Resolved Age Notes LastModified by Organization Details LastModified Time Sister Multiple sclerosis Multip le Sclero sis Not available 01/06/2025 17:42:03 Father Malignant neoplasm of colon Colon Cancer Not available 01/06/2025 17:42:03 Mother Family history of breast cancer Family histor y of breast cancer [email or web address] Not available 05/04/2025 08:28:27 Mother Malignant neoplasm of breast [email or web address] Not available 2024 11:05:16 Mother Osteoporosis [email or web address] Not avai lable 02/23/2025 11:05:16 Daughter Systemic lupus erythematosu s Lupus [email or web address] Not available 2024 08:28:27 Mother Heart disease Heart Diseas e Not available 01/06/2025 17:42:04 Medical History Condition Response Cancer- Genetic screening Gynecological History Statement/Question Response History of PCOS N Date of Last Mammogram 02/07/2025 History of Fibroids Y Date of LMP 09/08/2010 History of Infertility N History of Vulvar Dysplasia N History of Cervical Dysplasia N Current Control Method: Hysterecto my Age at Menarche 15 Current Control Method Hysterectom y History of Recurrent Ovarian Cysts N Age at first intercourse 17 History of Endometriosis N Date of Last Colonoscopy 09/08/2021 Sexually Active? Y History of Dysmenorrhea N Menses Monthly N Date of Last Pap Smear 02/23/2025 Sexual Problems? N History of Sexually Transmitted Infectio n N Date of Last Cholesterol Screening 02/22 Obstetrics History GPAL:G 2 P 2 0 0 2 Type Value Multiple Births 0 Full Term 2 Induced 0 Spontaneous 0 Premature 0 Living 2 Ectopics 0 Total 2 Past Encounters Encounter ID Performer Location Encounter Start Date Encounter Closed Date Diagnosis/Indication Diagnosis SNOMED-CT Code Diagnosis ICD10 Code Diagnosis IMO Codes Diagnosis Note [id number] PRIYA POWER MD [id number] [facility] [address] [place] [address] 02/23/2025 10:55:49 02/23/2025 11:23:17 History of loop electrosurgical excision procedure 7892434581 9102 Z98.890 09495465 Menopausal syndrome 1237 59122 N95.1 05524868 if not improved in 2w, call for higher dose Gynecologi c examination 41457301 Z01.419 [id number] PRIYA POWER MD [id number] [facility] [address] [facility] [address] [place] [address] 05/04/2025 08:28:12 05/04/2025 08:54:55 Abdominal bloating 144213026 R14.0 47501 Health Concerns Section Related Observation LastModified by Organization Detai ls LastModified Time None Recorded Concern Status LastModified by Organization Details LastModified Time None Recorded Advance Directives Directive N: Payers Insurance Date Sequence Insurance Name Policy Number Policy Barry Covered Member ID Barry Member ID Guarantor Name 05/10/2025 1 [facility] [id number] Shine Garcia [id number] Lori Reyes Notes Date Note Type Note Provider Name and Address Organization Details Recorded Time 5 text/html Annual ASSISTANT DISTRICT ATTORNEY - McwhcReported by PatientGenitourinary symptomsFor urinary symptoms, patient reportsno hematuriaandno incontinence. For vulvar complaints, patient reportsnone. For vaginal complaints, patient reportsnone. For gastrointestinal symptoms, patient reportsno gastrointestinal symptoms.Breast symptomsFor breast, patient reportsno breast pain,no breast lump, andno nipple discharge.Endocrine symptomsFor sexual complaints, patient reportsno sexual complaints,no pain during intercourse/sexual function, andnormal libido. For menopausal symptoms, patient reportsno menopausal symptomsandnormal vaginal lubrication.Psychological symptomsFor psychological symptoms, patient reportsno depression,no anxiety, andno pmdd. hot flashes and night sweats and vaginal dryness, interested in transdermal estrogen. agree PRIYA POWER MD [address] [facility] [address], [place], [address] [place] [address] [facility] 02/23/2025 11:24:00 OBGyn Episode Ob Episode Information Episode Created Date Number of Fetuses Patient Bloodtype Patient rh Status Prepregnancy Weight lbs Domestic Partner Domestic Partner Phone Father Name Cabana Attendant Status 01/22/20 25 1 CLOSED Fetus Data First Name Last Name Admitted to NICU Weight (g) Sex Living Outcome Pediatric Complications Fetus ID Race Codes Race Delivery Type M [id number] Vaginal Kong Calculation Initial Kong Date Initial Exam Date Initial Exam Provider Initial Ultrasound Date Last Menstrual Period Date Ultra Sound Weeks Gestation 0 Eighteen To Twenty Week Kong Update Ultra Sound Date Fundal Height At Umbil Quickening Date Ultra Sound Latest Weeks Gestation Final Kong Confirmed By Final Kong Confirmed Date Final Kong Date Ultra Sound Latest Days Gestation 0 0 Menstrual History Last Menstrual Date Menses Monthly On Bcp Conception Prior Menses Frequency Hcg Plus Date Menarche Onset Age Delivery Information Delivery Date Delivery Type Labor Anesthesia Weeks Gestation Incision Type Labor Labor Length Hrs Delivered By Post Complications Tubal Sterilization Discharge Date Comments 2 38 [place], fetus_1_w eight_lbs : '8lbs 12oz'; Discharge Information Feeding Method Contraceptive Method Maternal HG B and HCT Levels Ob Episode Information Episode Created Date Number of Fetuses Patient Bloodtype Patient rh Status Prepregnancy Weight lbs Domestic Partner Domestic Partner Phone Father Name Cabana Attendant Status 01/22/20 25 1 CLOSED Fetus Data First Name Last Name Admitted to NICU Weight (g) Sex Living Outcome Pediatric Complications Fetus ID Race Codes Race Delivery Type F [id number] Vaginal Kong Calculation Initial Kong Date Initial Exam Date Initial Exam Provider Initial Ultrasound Date Last Menstrual Period Date Ultra Sound Weeks Gestation 0 Eighteen To Twenty Week Kong Update Ultra Sound Date Fundal Height At Umbil Quickening Date Ultra Sound Latest Weeks Gestation Final Kong Confirmed By Final Kong Confirmed Date Final Kong Date Ultra Sound Latest Days Gestation 0 0 Menstrual History Last Menstrual Date Menses Monthly On Bcp Conception Prior Menses Frequency Hcg Plus Date Menarche Onset Age Delivery Information Delivery Date Delivery Type Labor Anesthesia Weeks Gestation Incision Type Labor Labor Length Hrs Delivered By Post Complications Tubal Sterilization Discharge Date Comments 9 38 [place], forceps/v acuum fetus_1_w eight_lbs : '10lbs 4oz'; Discharge Information Feeding Method Contraceptive Method Maternal HG B and HCT Levels
== END 2025-08-24 16:29 | disposition home or self-care (01) ==
PROVIDERS: PCP Physician Assistant Medical
DX: H65.01 Acute serous otitis media, right ear (principal)
CPT/HCPCS: 99213; G0463